=== PATIENT | male | born 1960 | race Caucasian/White ===

== ENCOUNTER → 2020-08-21 07:06 | Outpatient (CLI) | payer OTHER, SELFPAY ==
[2020-08-21 08:49] LABS: Add Manual Diff / Slide Review NO; Basophils Absolute Auto 0 /uL (0-100); Basophils Percent Auto 1.2 % (0-2); Eosinophils Absolute Auto 300 /uL (0-450); Eosinophils Percent Auto 6.8 % (2-4); Hematocrit 42.4 % (41-53); Hemoglobin 14.7 g/dL (13.5-17.5); Lymphocytes Absolute Auto 1100 /uL (1100-4500); Lymphocytes Percent Auto 27.4 % (25-40); Mean Corpuscular HGB Conc 34.6 % (30-36); Mean Corpuscular Hemoglobin 32.8 PG (26-34); Mean Corpuscular Volume 94.6 fL (80-100); Monocytes Absolute Auto 400 /uL (0-900); Monocytes Percent Auto 9.5 % (3-14); Neutrophils Absolute Auto 2200 /uL (1500-7000); Neutrophils Percent Auto 55.1 % (50-75); Platelet Count 181 X10^3/uL (150-400); Red Blood Cell Count 4.49 X10^6/uL (4.5-5.9); Red Cell Distribution Width 12.3 % (11.6-14.8)
[2020-08-21 09:20] LABS: Alanine Aminotransferase 26 IU/L (<50); Albumin Globulin Ratio 1.4 (1.0-2.8); Alkaline Phosphatase 52 U/L (38-126); Aspartate Aminotransferase 29 IU/L (17-59); BUN Creatinine Ratio 16.3 (6-22); Bilirubin Total 0.7 mg/dL (0.2-1.3); Blood Urea Nitrogen 14 mg/dL (9-20); Calcium 9.1 mg/dL (8.4-10.2); Carbon Dioxide 30 mmol/L (22-32); Chloride 103 mmol/L (98-107); Cholesterol 170 mg/dL (140-199); Estimated Glomerular Filt Rate > 60.0 mL/min (>60); Globulin 2.9 g/dL (1.7-4.1); Glucose 85 mg/dL (70-100); HDL Cholesterol 60 mg/dL (40-60); HEMOLYSIS < 15 (0-50); LDL Cholesterol Calculated 97 mg/dL (<100); Potassium 4.9 mmol/L (3.4-5.1); Sodium 139 mmol/L (137-145); Total Protein 6.9 g/dL (6.3-8.2); Triglycerides 64 mg/dL (35-150)
[2020-08-21 09:48] LABS: TSH w/ Reflex to FT4 2.79 uIU/mL (0.47-4.68)
== END ==
PROVIDERS: Family Provider Internal Medicine; PCP Physician Assistant; Referring Provider Physician Assistant; Visit Provider Physician Assistant
DX: E78.00 Pure hypercholesterolemia, unspecified (principal); E03.9 Hypothyroidism, unspecified
CPT/HCPCS: 36415; 80053; 80061; 84443; 85025

== ENCOUNTER → 2021-08-22 18:49 | Outpatient (CLI) | payer OTHER, SELFPAY ==
--- NOTE | 2021-08-22 18:52 | DI.RAD.S_ITS ---
PROCEDURE: XR KNEE LT 4V INDICATIONS: LEFT KNEE PAIN TECHNIQUE: Single AP view of the right knee is was three views of the left knee were obtained. COMPARISON: None. FINDINGS: Bones: No fractures or dislocations. No suspicious bony lesions. Moderate medial compartment joint space narrowing present. Moderate joint effusion noted. Patellofemoral joint space maintained. Soft tissues: No joint effusion. No suspicious soft tissue calcifications. IMPRESSION: Moderate medial compartment osteoarthritis. Approved by: Shawn Storey M.D. on 08/22/2021 at 21:12
== END ==
PROVIDERS: Family Provider Internal Medicine; PCP Physician Assistant; Referring Provider Physician Assistant; Visit Provider Physician Assistant
DX: M25.562 Pain in left knee (principal); M17.12 Unilateral primary osteoarthritis, left knee
CPT/HCPCS: 73564

== ENCOUNTER → 2021-09-10 13:20 | Outpatient (CLI) | payer OTHER, SELFPAY ==
--- NOTE | 2021-09-10 | DI.MRI.S_ITS ---
PROCEDURE: MR KNEE LT WO CON INDICATIONS: PAIN IN LEFT KNEE TECHNIQUE: Noncontrast sagittal PD fast spin echo and T2 fast spin echo with fat saturation, sagittal 3-D FLASH with fat saturation; coronal T1 spin echo and PD fast spin echo with fat saturation, and axial PD fast spin echo with fat saturation through the knee. COMPARISON: None. FINDINGS: Image quality: Excellent. Menisci: The medial and lateral menisci demonstrate normal morphology and internal signal. The meniscal root ligaments appear intact. Cruciate ligaments: The anterior and posterior cruciate ligaments appear intact. Medial structures: The medial collateral ligament appears intact. The visualized portions of the pes anserinus tendons appear normal. Lateral structures: The lateral collateral ligament complexes intact. The popliteus tendon appears normal. The iliotibial band appears normal. Anterior structures: The quadriceps and patellar tendons appear intact. Patellar alignment is normal. T2 hyperintense signal in the posterior aspect of the infrapatellar fat pad, compatible with edema. Bones and cartilage: No evidence of fracture. 3.2 x 7.8 x 5.9 mm T2 hyperintense focus in the medial femoral condyle with overlying hyaline cartilage deficiency and surface irregularity, compatible with osteochondral injury. 3.8 mm defect in the medial femoral condyle hyaline cartilage. Signal heterogeneity and fissure of the patellar apex. The lateral compartment hyaline cartilage is maintained. Joint space: Moderate knee joint fluid. A 3 x 1.4 x 4.5 cm T2 hyperintense lesion is seen in the popliteal fossa, likely reflecting a Hayward cyst. A fluid is seen along the superficial aspect of the medial gastroc, which may reflect partial Hayward's cyst rupture. Anterior subcutaneous soft tissue edema. IMPRESSION: 1. Edema within the posterior aspect of the infrapatellar fat pad, which may reflect traumatic impingement. 2. Medial compartment osteochondral injury and patellar chondromalacia as detailed above. 3. Moderate knee joint effusion. 4. Cystic-appearing lesion in the popliteal fossa, most consistent with a Hayward's cyst. 5. Fluid along the superficial aspect of the medial gastrocnemius, which may reflect partial Hayward's cyst rupture. Dictated by: Feliz Fu M.D. on 09/10/2021 at 15:27 Approved by: Feliz Fu M.D. on 09/10/2021 at 15:46
== END ==
PROVIDERS: Family Provider Internal Medicine; PCP Physician Assistant; Referring Provider Physician Assistant; Visit Provider Physician Assistant
DX: M25.562 Pain in left knee (principal); M25.462 Effusion, left knee; M22.42 Chondromalacia patellae, left knee
CPT/HCPCS: 73721

== ENCOUNTER → 2021-10-20 08:59 | Outpatient (CLI) | payer OTHER, SELFPAY ==
[2021-10-20 12:02] LABS: COVID19 -Nasal RAPID Negative (Negative)
== END ==
PROVIDERS: Family Provider Internal Medicine; PCP Physician Assistant; Visit Provider Nurse Practitioner Family
DX: Z20.822 Contact with and (suspected) exposure to COVID-19 (principal)
CPT/HCPCS: 87635

== ENCOUNTER 2021-10-21 10:27 | Day surgery (SDC) | payer OTHER, SELFPAY ==
--- NOTE | 2021-10-21 | PATH_ITS ---
[facility] Accession Number: [id number] . 01 Material submitted: . PART A: colon - CECAL COLON POLYP PART B: colon - ASCENDING COLON POLYP PART C: colon - TRANSVERSE COLON POLYP . 02 Diagnosis: A. Cecal Polyp, Biopsy: Tubular adenoma. . B. Ascending Colon Polyp, Biopsy: Tubular adenoma. . C. Transverse Colon Polyp, Biopsy: Colonic mucosa with focal mucosal hyperplasia. Negative for dysplasia or malignancy. MRV 10/24/2021 1215 Local . 02 Electronically signed: . Ayo Santos MD, PhD, Pathologist NPI- [id number] . 01 Gross description: . Part A: CECAL COLON POLYP: Received in formalin is 1 fragment(s) of lynn, soft tissue measuring 0.2 x 0.2 x 0.2 cm submitted entirely in 1 cassette(s) Part B: ASCENDING COLON POLYP: Received in formalin is 1 fragment(s) of lynn, soft tissue measuring 0.2 x 0.2 x 0.1 cm submitted entirely in 1 cassette(s) Part C: TRANSVERSE COLON POLYP: Received in formalin is 1 fragment(s) of lynn, soft tissue measuring 0.3 x 0.3 x 0.1 cm submitted entirely in 1 cassette(s) /QBJ 10/22/2021 0309 Local . 02 Pathologist provided ICD-10: D12.0, D12.2 . 02 CPT . 498751, 981682, [id number] Performed at: 01 [facility] [address] [id number] MD Isaac Nixon MD Phone: [phone] Performed at: 02 [facility] [address] [place], [place] [id number] MD Tiffany Christine MD Phone: [phone]
[2021-10-21 11:23] VITALS: BP 146/84; PULSE 74; RESP 16; TEMP 36.4; O2SAT 99; BMI 24.4
--- NOTE | 2021-10-21 12:05 | SUR.PREOP ---
PRE-OP: DR. SEVILLA NOTIFIED OF PATIENT C/O CHEST ACHING 11/24. NO NAUSEA, NO RADIATION. ORDERED EKG. RT NOTIFIED.
--- NOTE | 2021-10-21 12:06 | PM.HP.1 ---
History of Present Illness History of Present Illness Date Patient Seen: 10/21/21 Time Patient Seen: 12:06 Chief complaint: SDC Narrative: Patient states he last had a colonoscopy 20 years ago. Might have been 10 years ago. He thinks it was in his 40s. He is uncertain of the results but there is a report of a history of polyps. Patient History Medical History Hernia Hypercholesteremia Surgical History History of endoscopy Family & Social History Social History: household members spouse Tobacco & Substance use: Smoking Status Former smoker alcohol intake frequency 3 or more drinks per day Substance Use Type does not use Meds Home Medications and Allergies Home Medications Medication Instructions Recorded Confirmed Type atorvastatin 20 mg tablet (Lipitor) 20 mg PO HS #0 03/07/17 10/21/21 History VITAMIN D (Vitamin D3) 1,000 iu PO QDAY #0 11/02/17 10/21/21 History coenzyme Q10 100 mg capsule (Co 200 mg PO QDAY #0 11/02/17 10/21/21 History Q-10) multivitamin (Multiple Vitamins) 1 tab PO QDAY #0 11/02/17 10/21/21 History omega-3 fatty acids 1,000 mg PO DAILY 10/21/21 10/21/21 History Allergies Allergy/AdvReac Type Severity Reaction Status Date / Time latex [LATEX] Allergy Unknown Verified 10/21/21 11:35 Review of Systems Review of Systems ROS: Yes All systems reviewed with the patient and are negative except as otherwise documented Cardiovascular Comments: States he has some discomfort rated at a 1/10 in the chest that he believes is gas related. Exam Vital Signs (past 8 hours): - 10/21/21 11:23 Temperature 97.6 F Pulse Rate 74 Respiratory Rate 16 Blood Pressure 146/84 H Pulse Oximetry 99 Oxygen Delivery Method Room Air Oxygen Flow Rate 0 Const General: cooperative and comfortable Orientation: alert HENMT Head: normocephalic Ears: external ears normal Nose: external nose normal Face and sinus: normal facial exam Mouth: oral mucosae normal Eyes General: appearance normal, both eyes and all related structures Neck Neck: normal visual inspection Chest Chest: normal inspection of the chest Resp Effort & Inspection: normal respiratory effort Cardio Rate: regular rate GI Inspection: normal to inspection Skin General: no rashes or lesions noted and No jaundice Neuro General: patient alert and moves all extremities Cognition: normal cognition Speech: speech normal Extrem General: no pedal edema Psych Appearance: grossly normal Assessment & Plan Assessment & Plan narrative: 61-year-old male indicated for colon cancer screening. There is a vague history of personal history of unknown histology polyps. Prior to his exam we will order an EKG because he has reported a 1/10 chest discomfort that he believes is gas pain related. Time Spent With Patient Critical Care time: I spent a total of [] minutes of critical care time on this patient's care today; this time is exclusive of procedural time.
--- NOTE | 2021-10-21 12:09 | PM.PREOP ---
Pre-operative Note COVID-19 COVID-19 status: Negative Result date/Date tested (Pos, Neg/Pending): 10/20/21 Interval Note History & Physical reviewed/Exam performed by Physician: Yes Changes to H&P: No H&P completed within 30 days and has changed as indicated here:: Today ASA Class (for procedural sedation): II
--- NOTE | 2021-10-21 13:39 | P.OP.COLON_ITS ---
Operative Date/Time/Diagnoses Date of procedure: 10/21/21 Time of procedure: 13:39 Pre-op diagnosis: Personal history of colon polyps Post-op diagnosis: same Procedure & Clinicians Study performed: Colonoscopy with cold forceps polypectomy and hot snare polypectomy Same procedure as scheduled: Yes Indications: Personal history of colon polyps Surgeon: Olegario Melton Procedure Notes SCOAP/Timeout: Done Procedure in detail: After the risks and benefits were explained, written and verbal informed consent was obtained. The patient was brought into the procedure room and placed into the left lateral decubitus position. Please see nurse agriculture mechanic notes for sedation details. Digital rectal examination was accomplished. The scope was introduced into the patient and advanced under direct visualization to the cecum as identified by the appendiceal orifice and ileocecal valve. The scope was slowly withdrawn to carefully examine the mucosa for any defects or lesions. Comprehensive imaging was accomplished throughout the rectum including the dentate line. The colon was decompressed, the scope was then removed from the patient who tolerated the procedure well. Bowel prep adequate Adult colonoscope Scope withdrawal time: 15 minutes Sedation minutes: 22 Complications: none Impression: There were a couple of diminutive polyps in the cecum and ascending colon removed with cold forceps. There is a 7 mm sessile polyp in the transverse removed with hot snare polypectomy no other significant pathology was appreciated throughout. Endoscopic diagnosis Colon polyps Post-procedure Plan for aftercare: 1. Await histopathology 2. If all of these reveal adenomatous features, repeat colonoscopy 3 years. Otherwise a 5 year follow-up would be appropriate. Disposition: PACU
[2021-10-21 13:41] VITALS: BP 110/74; PULSE 68; RESP 12; TEMP 36.7; O2SAT 98
[2021-10-21 13:46] VITALS: BP 138/80; PULSE 66; RESP 12; O2SAT 98
[2021-10-21 13:51] VITALS: BP 128/81; PULSE 61; RESP 15; O2SAT 98
== END 2021-10-21 14:15 | disposition home or self-care (01) ==
PROVIDERS: Family Provider Internal Medicine; PCP Physician Assistant; Referring Provider Internal Medicine Gastroenterology; Visit Provider Internal Medicine Gastroenterology
PROC: 0DJD8ZZ Inspection of Lower Intestinal Tract, Via Natural or Artificial Opening Endoscopic (ICD-10-PCS; CPT 45378; principal; 2021-10-21 12:30)
DX: Z12.11 Encounter for screening for malignant neoplasm of colon (principal); Z86.010 Personal history of colon polyps; E78.00 Pure hypercholesterolemia, unspecified; D12.0 Benign neoplasm of cecum; D12.2 Benign neoplasm of ascending colon
CPT/HCPCS: 45385; 45380; 93005; 93010; J2704

== ENCOUNTER 2023-01-04 17:46 | Emergency (ER) | payer OTHER, SELFPAY ==
[2023-01-04 17:53] VITALS: BP 187/86; PULSE 81; RESP 18; TEMP 36.6; O2SAT 98; BMI 24.4
== END 2023-01-04 19:09 | disposition left against medical advice (07) ==
PROVIDERS: Emergency Provider Emergency Medicine; Family Provider Internal Medicine
CPT/HCPCS: 99281